=== PATIENT | male | born 1965 | race Caucasian/White ===

== ENCOUNTER 2017-05-23 11:58 | Emergency (ER) | payer MEDICAID ==
[~2017-05-23] VITALS: Ht 175.3 cm; Wt 70.0 kg
[2017-05-23] MEDS ORDERED: THIAMINE 100MG TABLET PO ONE (12:30)
[2017-05-23] MEDS ORDERED: FOLIC ACID 1 MG TABLET PO SCH (12:30)
[2017-05-23] MEDS ORDERED: ONDANSETRON 2MG/ML, 2ML IVPush ONE (12:30)
[2017-05-23] MEDS ORDERED: ONDANSETRON 2MG/ML, 2ML ONE (12:35)
[2017-05-23] MEDS ORDERED: THIAMINE 100MG TABLET ONE (12:35)
[2017-05-23 12:44] LABS: ASPARTATE AMINO TRANSFERASE 28 U/L (15-37); BLOOD UREA NITROGEN 11 mg/dL (7-18)
[2017-05-23 12:47] LABS: ACETAMINOPHEN < 2 mcg/mL (10-30)
[2017-05-23] MEDS ORDERED: SODIUM CHLORIDE 0.9% 1,000ML IVBOLUS ONE (13:00)
[2017-05-23] MEDS ORDERED: DIAZEPAM 5 MG/ML, 10ML VIAL IV ONE (13:30)
[2017-05-23 14:30] VITALS: BP 148/91
== END 2017-05-23 14:37 | disposition home or self-care (01) ==
LOC: ED 12:18
DX: F10.129 Alcohol abuse with intoxication, unspecified (principal); F19.10 Other psychoactive substance abuse, uncomplicated
CPT/HCPCS: 36415; 80053; 80307; 80329; 85025; 96361; 96374; 96375; 99284; J2405; J3360; J7030; G0480